=== PATIENT | female | born 1960 | race Caucasian/White ===

== ENCOUNTER 2020-10-30 03:35 | Emergency (ER) | payer MEDICAID ==
[~2020-10-30] VITALS: Ht 175.3 cm; Wt 98.5 kg
[~2020-10-30 03:35] MED LIST: BUTA-281 PO; DILT-94 PO; IBUP-1984 PO; IRBE1TAB PO; NORT25CA5 PO; OMEP20TA23 PO
[2020-10-30] MEDS ORDERED: DOXY100C43 PO (04:32)
[2020-10-30] MEDS ORDERED: NYST1000 PO (04:32)
[2020-10-30 05:05] VITALS: BP 136/72
== END 2020-10-30 05:07 | disposition home or self-care (01) ==
LOC: ER 03:35
DX: J01.90 Acute sinusitis, unspecified (principal); B37.0 Candidal stomatitis; R05 Cough; R09.89 Other specified symptoms and signs involving the circulatory and respiratory systems; J02.9 Acute pharyngitis, unspecified; I10 Essential (primary) hypertension; E11.9 Type 2 diabetes mellitus without complications; F12.90 Cannabis use, unspecified, uncomplicated; Z88.0 Allergy status to penicillin; Z79.2 Long term (current) use of antibiotics; Z79.899 Other long term (current) drug therapy
CPT/HCPCS: 99283